=== PATIENT | female | born 1985 | race Caucasian/White ===

== ENCOUNTER → 2017-02-13 | Outpatient (REF) ==
[~2017-02-13] MED LIST: LORTAB 7.5/5001 TAB PO; MOTRIN 600600 MG/TAB PO; PRENATAL1 TA1 PO
[2017-02-13 11:07] LABS: THYROID STIMULATING HORMONE 1.52 uIU/mL (0.465-4.680)
== END ==
LOC: ZLAB.WCH 09:29
PROVIDERS: Nurse Practitioner Family
DX: Z01.89 Encounter for other specified special examinations (principal)

== ENCOUNTER → 2017-08-24 | Outpatient (REF) | LOC: ZLAB.WCH 12:00 | DX: Z01.89 Encounter for other specified special examinations (principal) ==

== ENCOUNTER → 2018-09-23 | Outpatient (REF) ==
[2018-09-23 11:28] LABS: THYROID STIMULATING HORMONE 1.01 uIU/mL (0.465-4.680)
== END ==
LOC: ZLAB.WCH 10:39
PROVIDERS: Family Medicine
DX: Z01.89 Encounter for other specified special examinations (principal)

== ENCOUNTER → 2018-09-25 | Outpatient (REF) | LOC: COL.CARD 16:48 | DX: Z01.818 Encounter for other preprocedural examination (principal) ==

== ENCOUNTER → 2020-04-28 | Outpatient (CLI) | payer OTHER | LOC: COL.RAD 08:38 | DX: M75.111 Incomplete rotator cuff tear or rupture of right shoulder, not specified as traumatic (principal); M67.411 Ganglion, right shoulder; M67.813 Other specified disorders of tendon, right shoulder | CPT/HCPCS: A9585; Q9967 ==